=== PATIENT | male | born 1950 | race Caucasian/White ===

== ENCOUNTER → 2021-08-12 | Outpatient (CLI) | payer MEDICARE, MEDICAID | END | disposition home or self-care (01) | LOC: RAD 11:13 | PROVIDERS: ATTEND Internal Medicine Cardiovascular Disease | DX: M18.11 Unilateral primary osteoarthritis of first carpometacarpal joint, right hand (principal); M19.032 Primary osteoarthritis, left wrist; M19.042 Primary osteoarthritis, left hand; M18.9 Osteoarthritis of first carpometacarpal joint, unspecified | CPT/HCPCS: 73110; 73130 ==